=== PATIENT | male | born 1975 | race Caucasian/White ===

== ENCOUNTER 2020-07-11 13:40 | Inpatient (IN) | payer BC ==
[2020-07-11 14:38] LABS: #Basophils 0.1 thou/uL (0.0-0.2); #Eosinphils 0.2 thou/uL (0.0-0.7); #Lymphocytes 1.1 thou/uL (1.20-3.40); #Monocytes 0.5 thou/uL (0.11-0.59); #Neutrophils 3.5 thou/uL (1.40-6.50); %Basophils 1.2 % (0.0-1.0); %Eosinophils 3.7 % (0.0-10.0); %Lymphocytes 20.7 % (21.0-51.0); %Monocytes 9.7 % (0.0-10.0); %Neutrophils 64.7 % (42.0-75.0); Hemoglobin 17.6 g/dL (14.0-18.0); Mean Corpuscular HGB CONC 33.2 g/dL (32.0-36.0); Mean Corpuscular Hemoglobin 30.7 pg (27.0-31.0); Mean Corpuscular Volume 92.6 fL (78.0-98.0); Platelet Count 156 thou/uL (130-400); RBC Distribution Width 13.5 % (11.5-14.5); Red Blood Cell (RBC) Count 5.72 mill/uL (4.70-6.10); White Blood Cell (WBC) Count 5.5 thou/uL (4.8-10.8)
[2020-07-11 15:01] LABS: ALT (SGPT) 57 U/L (8-55); AST (SGOT) 44 U/L (5-34); Albumin 4.2 g/dL (3.5-5.0); Alkaline Phosphatase 82 U/L (40-110); Anion Gap 14 mmol/L (10-20); BUN (Urea Nitrogen) 19 mg/dL (8.9-20.6); Bilirubin, Total 0.7 mg/dL (0.2-1.2); Calc. Creatinine Clearance 0 mL/min (70-130); Calcium 9.3 mg/dL (7.8-10.44); Carbon Dioxide 25 mmol/L (22-29); Chloride 104 mmol/L (98-107); Estimated GFR-MDRD 43; Globulin 3.2 g/dL (2.4-3.5); Glucose 87 mg/dL (70-105); Potassium 4.2 mmol/L (3.5-5.1); Protein, Total 7.4 g/dL (6.0-8.3); Sodium 139 mmol/L (136-145)
--- NOTE | 2020-07-11 15:43 | RAD ---
2 VIEW CHEST: Date: 07/11/2020 HISTORY: Chest pain. FINDINGS: Lungs appear clear of infiltrate. Heart and mediastinum unremarkable. Osseous structures unremarkable . IMPRESSION: No acute process. POS: [facility]
[2020-07-11] MEDS ORDERED: Carvedilol 6.25 MG TAB PO SCH (15:45)
--- NOTE | 2020-07-11 17:26 | PDOC.HHP ---
Hospitalist HPI - History of Present Illness Near syncope History of Present Illness: Patient is a 44-year-old male who has been generally healthy. 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 He has a history of hypothyroidism diagnosed at a hormone clinic. He was also diagnosed with hypogonadism at one point because he was having some discomfort after a vasectomy in [place]. He is now getting his testosterone through the hormone clinic as well. He also reports some chronic kidney disease followed by Dr. Marrufo. He also reports a lifelong history of tachycardia with a baseline heart rate of over 100. The patient reports that he had Covid about 1 month ago. He had some rigors and sweats with that. He had some cough that was productive of discolored sputum and some shortness of breath. He reported that he had an abnormal chest x-ray and was given some antibiotics subsequent x-rays showed some "fluid in his left lung" and cardiomegaly. He was then sent to the ER where he was told it was fairly typical findings of Covid. He was told to follow-up with the vessel slag worker because of the cardiomegaly. He subsequently was referred by his PCP to Dr. Bains. 2 weeks ago he started moving some rocks at his new home that were fairly heavy. He had near syncopal episodes x3 when he was seeing bright flashes and feeling lightheaded. He states this is happened to him frequently over the years when he has been doing some power lifting. Over the past weekend he was working with a stump internal grinder tender for about 6 hours and then suddenly found himself to have extreme fatigue to the point that he dropped down to his knees. He says he usually does this when power lifting if he feels the same type symptoms. He did not have any chest pain associated with this. He has not had any shortness of breath associated with it. Patient was seen by Dr. Bains in his clinic and had an EKG and ech ocardiogram. Yesterday underwent a stress test. He apparently had some abnormal results including a decreased ejection fraction around 40%. He was asked to come to the hospital for admission and further work-up. ED Course: Patient was seen by Dr. Slade in the emergency room presumably at the request of Dr. Bains. He has requested the patient be started on carvedilol. This was initiated in the ER. Hospitalist ROS - Review of Systems Constitutional: denies: fever, chills Respiratory: denies: cough, shortness of breath Cardiovascular: denies: chest pain, palpitations, orthopnea Gastrointestinal: denies: nausea, vomiting, abdominal pain All other systems reviewed; all pertinent +/- noted in HPI/Subj - Medication Medications: Levothyroxine 150 mcg p.o. daily Testosterone 50 mg/mL, 1 mL IM weekly. Hospitalist History - Past Medical History Source: patient BAKER: reports: Migraine Renal/: reports: Chronic renal insuff Endocrine: reports: Other (Hypogonadism) - Past Surgical History Other Surgical History: Ankle surgery - Family History Family History: reports: Other (Alzheimer's disease.) - Social History Smoking Status: Never smoker Alcohol: reports: Rare Drugs: reports: none Living Situation: With Family - Exam General Appearance: NAD, awake alert Heart: RRR, no murmur, no gallops, no rubs, normal peripheral pulses Respiratory: CTAB, no wheezes, no rales, no ronchi, normal chest expansion, no tachypnea, normal percussion Gastrointestinal: soft, non-tender, non-distended, normal bowel sounds, no palpable masses, no hepatomegaly, no splenomegaly, no bruit Extremities: no cyanosis, no clubbing, no edema Skin: normal turgor, no lesions, no rashes Neurological: cranial nerve grossly intact, normal sensation to touch, no weakness, no focal deficits, no new deficit Musculoskeletal: normal tone, normal strength, no muscle wasting Psychiatric: normal affect, normal behavior, A&O x 3 Hospitalist Results - Labs Result Diagrams: 07/11/20 14:19 07/11/20 14:19 Lab results: WBC 5.5 thou/uL (4.8-10.8) 07/11/20 14:19 Hgb 17.6 g/dL (14.0-18.0) 07/11/20 14:19 Hct 53.0 % (42.0-52.0) H 07/11/20 14:19 MCV 92.6 fL (78.0-98.0) 07/11/20 14:19 Plt Count 156 thou/uL (130-400) 07/11/20 14:19 Neutrophils % 64.7 % (42.0-75.0) 07/11/20 14:19 Sodium 139 mmol/L (136-145) 07/11/20 14:19 Potassium 4.2 mmol/L (3.5-5.1) 07/11/20 14:19 Chloride 104 mmol/L (98-107) 07/11/20 14:19 Carbon Dioxide 25 mmol/L (22-29) 07/11/20 14:19 BUN 19 mg/dL (8.9-20.6) 07/11/20 14:19 Creatinine 1.74 mg/dL (0.7-1.3) H 07/11/20 14:19 Glucose 87 mg/dL (70-105) 07/11/20 14:19 Calcium 9.3 mg/dL (7.8-10.44) 07/11/20 14:19 Total Bilirubin 0.7 mg/dL (0.2-1.2) 07/11/20 14:19 AST 44 U/L (5-34) H 07/11/20 14:19 ALT 57 U/L (8-55) H 07/11/20 14:19 Alkaline Phosphatase 82 U/L (40-110) 07/11/20 14:19 Troponin I Less than 0.010 ng/mL (< 0.028) 07/11/20 14:19 B-Natriuretic Peptide Less than 10.0 pg/mL (0-100) 07/11/20 14:19 Serum Total Protein 7.4 g/dL (6.0-8.3) 07/11/20 14:19 Albumin 4.2 g/dL (3.5-5.0) 07/11/20 14:19 - EKG Interpretation EKG: Normal sinus rhythm at 78 bpm with no significant T wave changes. - Radiology Interpretation Chest x-ray Status: report reviewed by me (Negative) Hospitalist H&P A/P - Problem (1) Cardiomyopathy Code(s): I42.9 - CARDIOMYOPATHY, UNSPECIFIED Status: Acute (2) CKD (chronic kidney disease), stage III Code(s): N18.30 - CHRONIC KIDNEY DISEASE, STAGE 3 UNSPECIFIED Status: Acute (3) Hypothyroidism Code(s): E03.9 - HYPOTHYROIDISM, UNSPECIFIED Status: Acute (4) Hypogonadism Code(s): YMK1734 - Status: Acute (5) Elevated LFTs Code(s): R79.89 - OTHER SPECIFIED ABNORMAL FINDINGS OF BLOOD CHEMISTRY Status: Acute - Plan Plan: Cardiomyopathy: Patient has been experiencing symptoms of some near syncope and lightheadedness. He has had a work-up that has apparently revealed evidence of some ST segment depression on stress test as well as cardiomyopathy with reduced ejection fraction. He was referred from his vessel slag worker for admission and further work- up. He has been seen by the advanced heart failure vessel slag worker and Coreg has been started in the emergency department. Patient will be placed in observation. Continue on telemetry. Serial troponins. Consult cardiolog differential includes ischemia, viral cardiomyopathy, tachycardic associated cardiomyopathy. Apparently the stress test did not indicate evidence of significant ischemia. Hypothyroidism: Continue with home regimen. Check TSH. Hypogonadism: Patient can resume his outpatient treatment with testosterone injections. CKD stage III: At his stable GFR. Elevated LFTs: Appear to be mild and chronic. Recheck in the morning.
[2020-07-11 18:06] LABS: Troponin I Less than 0.010 ng/mL (< 0.028)
[2020-07-11 20:58] LABS: Troponin I Less than 0.010 ng/mL (< 0.028)
[2020-07-11] MEDS ORDERED: Acetylcysteine 10% 100 MG/ML 30 ml Vial PO SCH (21:30)
--- NOTE | 2020-07-11 22:04 | CT ---
CT THORAX NONCONTRAST: DATE: 07/11/2020 HISTORY: 44-year-old male with cough, dyspnea, and night sweats. COMPARISON: none FINDINGS: There is a large number of small patchy groundglass stellate infiltrates, both peripheral and central , scattered in the bilateral upper lobes and lower lobes, and mildly in right middle lobe. No pleural effusion, pneumothorax, thoracic aortic aneurysm, cardiomegaly, or pericardial effusion. T rachea and major bronchi are patent and clear. No mediastinal lymphadenopathy. IMPRESSION: Large number of small nodular patchy infiltrates, consistent with pneumonia by atypical organism, suc h as COVID-19 pneumonia, other viral pneumonia, and mycoplasma pneumonia.
[2020-07-11 22:30] VITALS: BMI 31.8
--- NOTE | 2020-07-11 22:32 | CON ---
DATE OF CONSULTATION: 07/11/2020 SERVICE: Advanced Heart Failure/Transplant Cardiology Consult Service. REASON FOR CONSULT: Paroxysmal occurrence of severe weakness and shortness of breath. HISTORY OF PRESENT ILLNESS: Mr. Nikita Redman, 44-year-old gentleman, who has long-standing tachycardia and episodes of flushing with sweat, presents with several episodes of severe sustained weakness. Mr. Redman has a long and somewhat complicated history. He said that he always has high fasting heart rate. His heart rate at rest is about 100 beats per minute. With exertion, he will go up to 200. He can feel his palpitations. He also has some episodes of syncope. He likes to do deadlift. When he picks up the weight deadlift, when he stands up straight at peak, that is when he would experience syncope. He has completely lost consciousness doing that several times. He would adjust the way and technique, so that does not happen anymore. However, with any exertion, his heart rate can go up to 200. At that time, the palpitation is also uncomfortable. These all occurred before the coronavirus infection. He did not feel well on June 11. He had fever, cough, and he had hot and cold spells and chills. He was tested positive for coronavirus. On June 13, he felt very shortness of breath. He felt like he has had walking pneumonia. Eventually, he was seen by the Pulmonary Clinic on June 14, was given oral steroids, antibiotics. On June 18, he felt worse. He reported that chest x-ray showed cardiomegaly. Since then, he has not been quite the same. At baseline, he can walk unlimited. So after the coronavirus infection, walking a mile becomes very, very difficult. He experienced two episodes of severe weakness. On June 29, he was raking dirt over rock to cover. The raking motion simply caused severe weakness, where he felt like passing out. This occurs three times. He felt very sweaty and short of breath at that time. But then, it went away. The second time occurred on July 06, 2020. 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 It did not involve that much exertion. He said he had sudden onset of severe weakness, fatigue, and diaphoresis. He almost collapsed. But, he did not lose consciousness. Then for next 30 minutes, he felt like he could barely move. It takes him a very, very long time to move equipment back to truck, these tasks had been very simple and easy. He has great difficulty performing them. Afterwards, he had to go home and sleep for 30 minutes. He feels better afterwards. These combination events caused him to be quite concerned. He was also told by his reading teacher and people in the gym that his heart rate should not be that fast. So, he sought care with sales special agent. He was seen by Dr. Jeremiah Carney. Dr. Jeremiah Rubio performed stress nuclear perfusion scan. Although he did not show any reversible ischemia, his heart was dilated and it was reported ejection fraction was only about 33%. Together with these episodes of severe weakness, he was asked to come into the ER and be admitted to be evaluated. Mr. Redman also has been having episodes of flushing. He describes turning red and sweating and with likely higher heart rate and palpitation. These events can happen episodically. This has been ongoing for several years. He can't really tell the reason why. He also has night sweats. Night sweats almost cover his sheet. This has been ongoing for extended period of time, perhaps between six months to two years, but not his entire life. Mr. Redman also does not sleep well at night. Before coronavirus, he was able to sleep flat. After coronavirus, he need to sleep at two pillows. Sometimes almost every night after he fall asleep for 2 hours, he would wake up gasping to bring in for air. He says he is getting symptoms of paroxysmal nocturnal dyspnea. However, Mr. Redman denies any edema. He also has a good appetite. Overall, he is very concerned about all of these events. He also has migraines. PAST MEDICAL HISTORY: 1. Persistent high heart rate and frequent palpitations. 2. Chronic renal insufficiency, stage IIIA. He actually has a high creatinine. 3. He said his blood pressure has been on the high side in the mid 130s and diastolic in the 90s. Thus, he has hypertension. 4. He has hypogonadism. He requires testosterone supplementation. 5. He also has hypothyroidism, requires supplement. 6. 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 7. He has frequent occurrence of basal cell carcinoma. They were removed by client solutions director. SOCIAL HISTORY: 1. He is a nonsmoker. 2. He only drinks one alcoholic drink per month. 3. He denies any illicit drug use. 4. He has been for 15 years. 5. 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 FAMILY HISTORY: 1. His father at age 77 due to Alzheimer. 2. His mother is still alive at age 73, however, she has syncope due to aortic insufficiency. 3. He has one brother who is healthy and well. 4. He denies knowing any immediate family of having sudden cardiac . REVIEW OF SYSTEMS: GENERAL: He has episodic fatigue that is sudden onset. Please see HPI. HEENT: There is no change in vision, hearing, or swallowing. PULMONARY: Please see HPI. CARDIAC: Please see HPI. GI: There is no nausea, vomiting, diarrhea. : He is urinating well. MUSCULOSKELETAL: He has no complaint of muscle or joint pains. He does circuit weight training, is quite fit. INTEGUMENT: There are no new reports of skin breakdown that are suspicious by this admission. However, he does have a history of skin cancer. Please see past medical history. NEUROLOGIC: There are no focal deficits or weaknesses. MEDICATIONS: His home medications include, 1. Testosterone supplement. 2. Synthroid. PHYSICAL EXAMINATION: VITAL SIGNS: I saw the patient in the ER. At that time, his heart rate is between 96-102, his systolic blood pressure is between 129-134, diastolic blood pressure between 82-98. GENERAL: He is alert and conversational. He is not in any acute distress. HEENT: Show EOMI. Oropharynx is benign with moist mucosa. NECK: His JVP is actually 8 cm with negative hepatojugular reflux. PULMONARY: There is good air movement bilaterally. Lungs are clear to auscultation bilaterally. CARDIAC: Tachycardic. Normal S1, S2, there is perhaps a slight 1/6 holosystolic murmur at the apex. His PMI seems to be little bit inferiorly and laterally displaced. ABDOMEN: Soft, nontender. Positive bowel sounds. EXTREMITIES: His lower extremities without edema, it is warm and well perfused. Positive dorsalis pedis pulses bilaterally. IMAGING: His chest x-ray was done and reviewed. It show slightly enlarged heart. There are prominent vascular patterns. LABORATORY VALUES: Include sodium 139, potassium 4.2, bicarbonate 25, BUN 19, creatinine 1.74, total bilirubin 0.7, AST slightly elevated at 44, ALT slightly elevated at 57. His troponin I is less than 0.01. His albumin is 4.2. His CBC shows white cell count 5.5, hemoglobin is elevated at 17.6, his hematocrit elevated at 53. His platelet count 156. His BNP value is less than 10. ASSESSMENT: 44-year-old gentleman has syndrome of sudden onset of severe fatigue, weakness, and shortness of breath. He also has naturally high resting heart rate above 100. He has frequent occurrence of flushing. This is an enigmatic symptom that needs careful exploration. Coronary artery disease can cause sudden onset of severe fatigue and shortness of breath that resolved with rest. Thus, a cath is needed to look for significant coronary artery disease. He may have underlying cardiomyopathy. That would explain his tachycardia and possibly enlarged heart and low ejection fraction. He may have underlying endocrine neoplasm. A serotonin secreting neoplasm will cause continued high heart rate and flushing, which will be consistent with his presentation, so this will also need to be explored. Please see the following for my recommendations. RECOMMENDATIONS: 1. Please perform a good careful echocardiogram to look for cardiomyopathy. 2. Depending on the echocardiogram findings, we will likely need to do a coronary angiogram to check for his significant coronary artery stenosis. 3. We will need to do a noncontrast CT of the chest to look for pulmonary nodules or for potential pulmonary carcinoid tumor. 4. We will need to collect 24-hour urine for metanephrines, 5-HIAA, and also vanillylmandelic acid. 5. Please provide carvedilol at 6.25 mg p.o. q.12 hours, first dose now. That will help to control his heart rate and start treating his probable cardiomyopathy. 6. It would be ideal to start Entresto. However, since that he may need a coronary angiogram with creatinine 1.74, we will hold off on this for now. Please start Ivabradine at 2.5 mg p.o. b.i.d. due to his surprisingly high heart rate. 7. Since that he may undergo coronary angiogram, he will need to be n.p.o. past midnight. 8. Please provide careful IV hydration of half normal saline at about 70 mL/h, starting at 6 o'clock in the morning and then continue until 6 hours post catheterization, but no more than 1 L. 9. Complete overall health evaluation to include TSH to make sure that he is not getting too much thyroid supplementation, lipid panel, and hemoglobin A1c. It has been a pleasure taking care of Mr. Redman. If you have any question, please give me a call. This visit took 75 minutes. This includes personally performing history and physical, counseling the patient's , coordinating care with Dr. Delaney and other medical staff, and reading chest x-ray. Job ID: [id number] MTDD
--- NOTE | 2020-07-12 00:01 | CON ---
DATE OF CONSULTATION: HISTORY OF PRESENT ILLNESS: Patient is a 44-year-old gentleman, who presents with recurrent syncope and dyspnea. The patient states that he has a long history of persistent tachycardia. He recently had several episodes where he has lost consciousness. He first noticed these primarily when he had done heavy weightlifting, but he has subsequently had recurrent episodes. The patient did have recently COVID. He noticed having some lower extremity edema. Patient denies having any chest discomfort. He underwent an echocardiogram which revealed a mild decreased left ventricular systolic function. The patient underwent stress testing which he was found to have a moderate decrease in left ventricular systolic function. There was no evidence of significant ischemia. He was admitted for further cardiac evaluation. PAST MEDICAL HISTORY: 1. Chronic renal failure. 2. History of epilepsy. 3. History of basal cell carcinoma. PAST SURGICAL HISTORY: Ankle surgery, and vasectomy. SOCIAL HISTORY: Nonsmoker. ALLERGIES: NO KNOWN DRUG ALLERGIES. PHYSICAL EXAMINATION: GENERAL: A well-developed gentleman, in no acute distress. VITAL SIGNS: Blood pressure 120/100. NECK: There is no jugular distention. LUNGS: Clear to auscultation. HEART: Regular rate and rhythm with a normal S1, S2 with displaced PMI. LABORATORY: Sodium 139, potassium 4.2, chloride 104, bicarb 25, BUN 19, and creatinine 1.7. BNP is less than 10. Troponin less than 0.01. White blood cell count 5.5, hemoglobin 17.6, hematocrit 53.0, and his platelets were 156. Chest x-ray revealed normal heart size. No infiltrates. EKG revealed sinus rhythm with sinus arrhythmia. IMPRESSION: 1. Recurrent syncope. 2. Cardiomyopathy. 3. Renal insufficiency. This gentleman was found to have a decreased left ventricular systolic function. He has also had recurrent syncope. From a cardiac standpoint, there is no evidence of ischemia on his stress testing. Will proceed with CHF cardiac evaluation and EP evaluation. Further recommendations will follow. Job ID: [id number] [facility]
[2020-07-12 04:27] LABS: #Basophils 0.1 thou/uL (0.0-0.2); #Eosinphils 0.4 thou/uL (0.0-0.7); #Lymphocytes 1.7 thou/uL (1.20-3.40); #Monocytes 0.5 thou/uL (0.11-0.59); #Neutrophils 1.9 thou/uL (1.40-6.50); %Basophils 1.7 % (0.0-1.0); %Eosinophils 9.2 % (0.0-10.0); %Lymphocytes 37.3 % (21.0-51.0); %Neutrophils 40.8 % (42.0-75.0); Hemoglobin 16.5 g/dL (14.0-18.0); Mean Corpuscular HGB CONC 33.5 g/dL (32.0-36.0); Mean Corpuscular Hemoglobin 30.9 pg (27.0-31.0); Mean Corpuscular Volume 92.3 fL (78.0-98.0); Mean Platelet Volume 8.6 fL (7.4-10.4); Platelet Count 160 thou/uL (130-400); RBC Distribution Width 13.4 % (11.5-14.5); Red Blood Cell (RBC) Count 5.33 mill/uL (4.70-6.10); White Blood Cell (WBC) Count 4.5 thou/uL (4.8-10.8)
[2020-07-12 04:37] LABS: Hemoglobin A1c 5.5 % (4.0-6.0)
[2020-07-12 04:51] LABS: Anion Gap 13 mmol/L (10-20); BUN (Urea Nitrogen) 22 mg/dL (8.9-20.6); Calc. Creatinine Clearance 61 mL/min (70-130); Calcium 8.9 mg/dL (7.8-10.44); Carbon Dioxide 28 mmol/L (22-29); Cardiac Risk 4.5 (Less than 4.5); Chloride 103 mmol/L (98-107); Cholesterol 249 mg/dl (< 200 Desired); Estimated GFR-MDRD 37; Glucose 86 mg/dL (70-105); HDL Cholesterol 55 mg/dL (>60 Neg Risk); Iron 60 ug/dL (65-175); Iron Binding Capacity, Total 315 mcg/dL (261-462); LDL Cholesterol, Calculated 172 mg/dL; Magnesium 2.2 mg/dL (1.6-2.6); Potassium 4.1 mmol/L (3.5-5.1); Sodium 140 mmol/L (136-145); Triglycerides 112 mg/dL (Less than 150)
[2020-07-12 04:56] LABS: Iron 60 ug/dL (65-175); Iron Binding Capacity, Total 313 mcg/dL (261-462)
[2020-07-12 05:10] LABS: Thyroid Stimulating Hormone 1.3995 uIU/mL (0.35-4.94)
[2020-07-12] MEDS: Sodium Chloride 0.45% 1,000 ML IV SCH ×3 (05:33→18:47)
[2020-07-12] MEDS: Acetylcysteine 10% 100 MG/ML 30 ml Vial PO SCH (11:27)
[2020-07-12] MEDS ORDERED: Midazolam HCl 2 mg/2 ml Vial ONE (12:23)
[2020-07-12] MEDS ORDERED: Fentanyl 100 MCG/2 ML VIAL ONE (12:23)
[2020-07-12] MEDS ORDERED: Acetaminophen/Codeine 30-300mg Tablet PO PRN ×2 (12:54)
[2020-07-12] MEDS ORDERED: Nitroglycerin 0.4 MG TAB (25 Tab Bottle) SL PRN (12:54)
[2020-07-12] MEDS ORDERED: Sodium Chloride 0.9% 200 ML IV PRN (12:54)
[2020-07-12] MEDS ORDERED: Ondansetron PF 4 MG/2 ML Vial ONE (12:55)
[2020-07-12] MEDS ORDERED: Atropine Sulfate 1 mg/10 ml Syringe ONE (12:56)
[2020-07-12] MEDS ORDERED: Atropine Sulfate 1 mg/1 ml Vial ONE (12:56)
--- NOTE | 2020-07-12 13:56 | PRG ---
DATE OF SERVICE: 07/12/2020 SUBJECTIVE: Mr. Redman had a variable evening. When he went to the floor, his heart rate was 120 to 138. Consequently, ivabradine was needed to be started. Apparently, he slept through the night without any problems. However, at telemetry, he has bradycardia with sinus pauses that were 2.5 seconds in duration. Later on this morning, even when awake, he did have some bradycardia with sinus pauses greater than about 2 seconds. He is anxious this morning. Would like to know what to do next. REVIEW OF SYSTEMS: GENERAL: There is no fever, chills, or productive cough. He does have episodes of feeling lightheaded. HEENT: There is no change in vision, hearing, or swallowing. PULMONARY: There is no shortness of breath. CARDIAC: He does have palpitations but no chest pains. GI: There is no nausea, vomiting, diarrhea. : He is able to urinate on his own. MUSCULOSKELETAL: He does not complain of joint or muscle pains. INTEGUMENT: There is no skin breakdown. NEUROLOGIC: There are no focal deficits or weaknesses. MEDICATIONS: He is currently on 1. Carvedilol 6.25 mg twice a day. 2. Ivabradine 2.5 mg q.12 hours. 3. He has been receiving acetylcysteine 600 mg orally twice per day, two doses before catheterization and two doses after catheterization. 4. He is currently on half-normal saline at 75 mL/hour. PHYSICAL EXAMINATION: TELEMETRY: Reviewed. He has sinus tachycardia at times and he also has sinus pauses, the longest overnight is 2.5 seconds and longest during wake time is about 2 seconds. VITAL SIGNS: Blood pressure is 120/87, heart rate at time is 84. GENERAL: He is alert and conversational, sitting comfortably in bed. HEENT: EOMI. Oropharynx is benign with moist mucosa. NECK: JVP is about 8 cm with negative hepatojugular reflux. PULMONARY: Clear to auscultation. There is good air movement bilaterally. CARDIAC: Regular rate and rhythm with normal S1, S2. There is 1/6 holosystolic murmur at the apex. There is also 2/6 holosystolic murmur at the left sternal border. ABDOMEN: Soft, nontender. Positive bowel sounds. EXTREMITIES: Lower extremities without edema. Pulses, positive dorsalis pedis pulses bilaterally. LABORATORY DATA: This morning, his white cell count is 4.5, hemoglobin 16.5 and hematocrit is at 49. His chemistry values show sodium 140, potassium 4.1, BUN 22, creatinine 1.99. His low iron saturation is 19%. His ferritin is in the normal range of 264. His LDL cholesterol is elevated to 172. His HDL cholesterol is at 55. His echocardiogram was completed and reviewed. 1. He has mildly dilated left ventricle with LVIDd of 5.7 cm. 2. LVEF is 30% with smoke in the ventricle suggesting very slow flow due to hypocontractility. 3. Moderately dilated right ventricle with mildly reduced right ventricular function. 4. This is consistent with a cardiomyopathy. ASSESSMENT: 44-year-old gentleman has cardiomyopathy. He has combined systolic and diastolic dysfunction with dilated LV. He also has right ventricular dilation and reduced right ventricular function. He has pauses. At this point, he will need a coronary angiogram to rule out coronary artery disease as cause of this. With his history of syncope, biventricular dysfunction, he will likely need a dual- chamber AICD because he already has syncope and also pauses. A LifeVest would not be useful because the LifeVest cannot pace. There is some possibility of coronary artery disease because LDL is so high. He also has flushing and tachycardia episodes that needs to be investigated. His 24 hour collection for possible serotonin neoplasm needs to be completed. In the meantime, we will give him gentle hydration and Mucomyst to protect his kidneys. RECOMMENDATION: 1. Proceed down to coronary angiogram with biplane and low dye volume as much as possible. 2. Discontinue ivabradine for now because he probably has significant bradycardia problem. 3. Please add aspirin 81 mg daily. 4. Please add atorvastatin 80 mg p.o. at bedtime. 5. When he returns, we will need to continue with gentle IV hydration for least 6 hours. 6. We will hold off on Entresto for now, give him 3 days for his kidneys to recover. 7. We will need to consult EP Cardiology for consideration of dual-chamber AICD. It has been a pleasure taking care of Mr. Redman. If any questions, please give me a call. The visitation time is about 45 minutes. This includes personally performing history and physical, reading echocardiogram and coronary care among multiple members and patient counseling and explanation. Job ID: [id number] MTDD
[2020-07-12] MEDS ORDERED: Iopamidol 370 76% 100 ML VIAL ONE (14:24)
--- NOTE | 2020-07-12 14:54 | CON ---
DATE OF CONSULTATION: 07/12/2020 REASON FOR CONSULTATION: Evaluate results of SARS-CoV-2 tests in relationship to possible persistence of infection. HISTORY OF PRESENT ILLNESS: A 44-year-old, who has a history of CKD stage 3, followed by Dr. Marrufo. The patient could not tell me what the etiology of this diagnosis is. He also has a history of hypogonadism and hypothyroidism and was diagnosed with COVID at the beginning of May. He remained at home throughout the course of his illness and had quite a bit of symptoms and his oximetries went all the way down to the higher 80s at the beginning of the COVID-19. He slowly got better, and sometime at the end of May, went back to work. 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 Bains and he was recommended evaluation included an EKG and echocardiogram. The echo showed decreased ejection fraction around 40% and he was just admitted and had a coronary angiogram, which was normal. Currently, Mr. Redman is not coughing much. A little bit of dyspnea sometimes, but he does not have orthopnea. No headaches. No sore throat, odynophagia, or dysphagia. No dental pain. No back pain. No chest pain. No abdominal pain or diarrhea. Voiding without difficulty. He had some nocturia for a while, but that has improved. MEDICAL HISTORY: Migraine headaches, hypothyroidism, hypogonadism, and CKD stage 3. FAMILY HISTORY: Noncontributory. SOCIAL HISTORY: . He works at [employer] in [employer]. Never smoker. Drinks rarely. CURRENT MEDICATIONS: 1. Acetaminophen. 2. Coreg. 3. Corlanor. PHYSICAL EXAMINATION: VITAL SIGNS: T-max 97.9, blood pressure 120/87, heart rate 84, respiratory rate 16, O2 saturation 95 on room air. SKIN: Has a peripheral IV access. He is voiding in the toilet. No lymphadenopathy. HEENT: Ocular movements conjugate. Sclerae are white. Pupils are reactive and equal. Oral cavity normal. NECK: Supple. LUNGS: Symmetric, clear breath sounds. HEART: S1 and S2, regular rate. No S3 or S4. ABDOMEN: Soft. Not distended or tender. No ascites. No bladder distention. EXTREMITIES: No joint inflammatory activity. No edema. Pulses 1+ in dorsalis pedis. LABORATORY DATA: White cell count 4.5, hemoglobin 16, platelets 160, 40% neutrophils, total lymphocyte count 1.7. Sodium 140; creatinine 1.99; GFR 37, this is about his baseline; uric acid 6.1; glucose 86. Iron 60, ferritin 264. AST 44, ALT 57. BNP less than 10. Albumin 4.2, globulin 3.2. Thyroid tests were normal. His initial SARS-CoV-2 PCR positivity was in the first week of May, so this is a month and a half after his original infection was detected and 4 weeks after resolution of his illness. ASSESSMENT: Chronic kidney disease of unclear etiology, stage 3; hypogonadism; hypothyroidism; and recent episode of SARS-CoV-2 infection, which was managed in the home setting, at least moderate in severity, with O2 saturations as low as 87 as reported by the patient's , but never admitted. The only treatment he received was azithromycin and anti-cough medicines. Now, he presents with cardiomegaly and moderately decreased ejection fraction. He had a clear angiogram and now positive SARS-CoV PCR repeated on July 09. DISCUSSION: About 20% to 30% of patients will have intermittently positive SARS-CoV-2 PCR after resolution of the initial illness and an almost totality of those patients do not have viable virus detectable, therefore I would not consider him infectious. Small minorities still have some virus, but usually those reflect reinfection or recrudescence due to immunosuppression. So, I believe that we can manage this patient without the usual airborne precautions/isolation precautions, and I consider this repeat test positivity as not relevant for his management at this point in time. SARS-CoV-2 is known to be associated with the cardiomyopathy in certain patients, although the incidence of direct involvement by the virus is actually quite low according to various autopsy studies. Job ID: [id number] [facility]
[2020-07-12 15:15] LABS: SARS-CoV-2 IgG Ab Reactive (NonReactive); SARS-CoV-2 IgG Index 7.54 S/CO (< 1.40)
[2020-07-12] MEDS: Ivabradine 5 MG TAB PO SCH ×2 (15:50→22:11)
[2020-07-12] MEDS: Carvedilol 6.25 MG TAB PO SCH ×2 (15:50→21:46)
[2020-07-12] MEDS ORDERED: Aspirin Chewable 81 MG TAB PO SCH (17:45)
--- NOTE | 2020-07-12 19:01 | PDOC.HOSPP ---
- Subjective Encounter Date: 07/12/20 Encounter Time: 10:55 Subjective: Patient up in bed denies any complaints - Objective Vital Signs & Weight: Vital Signs (12 hours) Temp Pulse Resp BP Pulse Ox 07/12/20 16:00 97.6 F 92 17 125/59 L 95 07/12/20 13:45 97.2 F L 88 14 116/71 98 07/12/20 07:15 97.5 F L 84 16 120/87 95 Weight Weight 203 lb I&O: 07/11/20 07/12/20 07/13/20 06:59 06:59 06:59 Intake Total 1150 Output Total 950 Balance 200 Result Diagrams: 07/12/20 04:11 07/12/20 04:10 Hospitalist ROS - Review of Systems Cardiovascular: denies: chest pain, palpitations, orthopnea, paroxysmal noc. dyspnea, edema, light headedness, other Gastrointestinal: denies: nausea, vomiting, abdominal pain, diarrhea, constipation, melena, hematochezia, other Genitourinary: denies: dysuria, frequency, incontinence, hematuria, retention, other - Medication Medications: Active Medications Generic Name Dose Route Start Last Admin Trade Name Freq PRN Reason Stop Dose Admin Acetylcysteine 600 mg 07/12/20 09:00 07/12/20 11:27 Acetylcysteine 10% 100 Mg/Ml 30 Ml Vial PO 07/13/20 09:01 600 mg BID LATA Administration Aspirin 81 mg 07/12/20 17:45 07/12/20 17:48 Aspirin Chewable 81 Mg Tab PO 07/12/20 19:45 81 mg NOW LATA Administration Carvedilol 6.25 mg 07/12/20 09:00 07/12/20 15:50 Carvedilol 6.25 Mg Tab PO 6.25 mg Q12HR LATA Administration Sodium Chloride 1,000 mls @ 75 mls/hr 07/12/20 18:30 07/12/20 18:47 1/2 Normal Saline IV Not Given .[id number] LATA Ivabradine 2.5 mg 07/12/20 09:00 07/12/20 15:50 Ivabradine 5 Mg Tab PO 2.5 mg Q12HR LATA Administration - Exam Neck: negative: supple, symmetric, no JVD, no thyromegaly, no lymphadenopathy, no carotid bruit, JVD Heart: negative: RRR, no murmur, no gallops, no rubs, normal peripheral pulses, irregular, diminshed peripheral pulses, murmur present, II/IV, III/IV Respiratory: negative: CTAB, no wheezes, no rales, no ronchi, normal chest expansion, no tachypnea, normal percussion, rales, rhonchi, tachypneic, wheezes Gastrointestinal: negative: soft, non-tender, non-distended, normal bowel sounds, no palpable masses, no hepatomegaly, no splenomegaly, no bruit, no guarding, no rigidity, tender to palpation, distended, diminished bowl sounds, voluntary guarding Hosp A/P (1) CKD (chronic kidney disease), stage III Code(s): N18.30 - CHRONIC KIDNEY DISEASE, STAGE 3 UNSPECIFIED Status: Acute (2) Cardiomyopathy Code(s): I42.9 - CARDIOMYOPATHY, UNSPECIFIED Status: Acute (3) Elevated LFTs Code(s): R79.89 - OTHER SPECIFIED ABNORMAL FINDINGS OF BLOOD CHEMISTRY Status: Acute (4) Hypogonadism Code(s): YSL8095 - Status: Acute (5) Hypothyroidism Code(s): E03.9 - HYPOTHYROIDISM, UNSPECIFIED Status: Acute (6) Systolic heart failure Code(s): I50.20 - UNSPECIFIED SYSTOLIC (CONGESTIVE) HEART FAILURE Status: Acute (7) Sinus pause Code(s): I45.5 - OTHER SPECIFIED HEART BLOCK Status: Acute - Plan Patient had a 2.5-second pause. Cardiac cath done no acute coronary disease. EF of 30%. Patient started on Coreg. We will continue aspirin and statin. Most likely will require a ICD. Patient had Covid in May antibodies positive. Patient also undergoing a 24-hour urine collection for pheochromocytoma.
[2020-07-12] MEDS: Atorvastatin Calcium 40 MG TAB PO SCH (21:46)
[2020-07-12] MEDS: Heparin 5,000 UNITS/ML VIAL SC SCH (21:48)
--- NOTE | 2020-07-12 21:50 | CON ---
DATE OF CONSULTATION: REQUESTING PHYSICIAN: given the history of chronic kidney disease, followed by me at the chronic kidney disease clinic. IMPRESSION: 1. Chronic kidney disease stage 3 with a baseline creatinine of about 1.5 to 1.7. 2. Cardiomyopathy, query cause, maybe related to recent COVID infection, but cannot completely rule out ischemic cardiomyopathy. 3. Dyslipidemia. PLAN: 1. Given the chronic kidney disease state of this patient, we will recommend lowest possible amount of diet for diagnostic purposes. 2. Gentle hydration pre and post contrast exposure. 3. Hold off on TREVIN inhibitor usage for now. 4. Renally dose all other medications and avoid potentially nephrotoxic agents. HISTORY OF PRESENT ILLNESS: History is that of a 44-year-old gentleman, known to me at the chronic kidney disease screening with a baseline chronic kidney disease stage 3. The patient has maintained stable kidney condition at the level of stage 3, recently diagnosed with COVID infection, managed as an outpatient, presented here because of recurrent syncopal episode and echocardiogram reviewed, reduced ejection fraction. As a result of this, patient is now being admitted for further diagnostic/possible intervention. PAST MEDICAL HISTORY: As documented above. In addition, patient does have history of hypogonadism, hypertension, dyslipidemia. MEDICATIONS: Reviewed as documented on [facility]. ALLERGIES: NO KNOWN DRUG ALLERGIES. FAMILY HISTORY: Not significantly related to present illness. SOCIAL HISTORY: The patient is . Denies alcohol, tobacco, or illicit drug use. REVIEW OF SYSTEMS: As documented in the body of the history. All other systems were reviewed and found not to be significantly related to present illness. PHYSICAL EXAMINATION: VITAL SIGNS: On examination, the patient noted with the following vital signs; afebrile with temperature 97.5, pulse 84, respiratory rate of 16, O2 saturation of 98% with a blood pressure 116/71. HEENT EXAMINATION: Unremarkable. CARDIOVASCULAR SYSTEM: First and second heart sounds were heard. RESPIRATORY SYSTEM: Clear to auscultation. DIGESTIVE SYSTEM: Revealed a benign abdomen. EXTREMITIES: No peripheral edema. SKIN EXAMINATION: No new gross rash. LYMPHATICS: No peripheral lymphadenopathy. In summary, this 44-year-old gentleman with chronic kidney disease stage 3, who presented here status post COVID infection and noted with cardiomyopathy. Thank you for this consultation. We will follow with you. Job ID: [id number]
[2020-07-13] MEDS: Acetylcysteine 10% 100 MG/ML 30 ml Vial PO SCH ×3 (00:46→11:42)
[2020-07-13] MEDS ORDERED: Acetylcysteine 10% 100 MG/ML 30 ml Vial INH SCH (01:00)
[2020-07-13 04:40] LABS: #Basophils 0.1 thou/uL (0.0-0.2); #Eosinphils 0.4 thou/uL (0.0-0.7); #Lymphocytes 1.8 thou/uL (1.20-3.40); #Monocytes 0.7 thou/uL (0.11-0.59); #Neutrophils 2.8 thou/uL (1.40-6.50); %Basophils 1.7 % (0.0-1.0); %Eosinophils 7.6 % (0.0-10.0); %Lymphocytes 30.9 % (21.0-51.0); %Monocytes 12.6 % (0.0-10.0); %Neutrophils 47.3 % (42.0-75.0); Hemoglobin 16.4 g/dL (14.0-18.0); Mean Corpuscular HGB CONC 34.2 g/dL (32.0-36.0); Mean Corpuscular Volume 93.4 fL (78.0-98.0); Mean Platelet Volume 8.6 fL (7.4-10.4); Platelet Count 153 thou/uL (130-400); RBC Distribution Width 13.4 % (11.5-14.5); Red Blood Cell (RBC) Count 5.14 mill/uL (4.70-6.10); White Blood Cell (WBC) Count 5.9 thou/uL (4.8-10.8)
[2020-07-13 05:02] LABS: Anion Gap 11 mmol/L (10-20); BUN (Urea Nitrogen) 16 mg/dL (8.9-20.6); Calc. Creatinine Clearance 62 mL/min (70-130); Calcium 9.1 mg/dL (7.8-10.44); Carbon Dioxide 28 mmol/L (22-29); Chloride 104 mmol/L (98-107); Estimated GFR-MDRD 37; Glucose 86 mg/dL (70-105); Magnesium 2.1 mg/dL (1.6-2.6); Potassium 4.3 mmol/L (3.5-5.1); Sodium 139 mmol/L (136-145)
--- NOTE | 2020-07-13 08:57 | CON ---
DATE OF CONSULTATION: 07/12/2020 ADDITIONAL REFERRING PHYSICIAN: Nevin Roberts MD HISTORY OF PRESENT ILLNESS: I am seeing Mr. Redman at our [facility] as an Electrophysiology applications sales consultant in the telemetry floor. His problems are; 1. Newly found systolic congestive heart failure with nonischemic cardiomyopathy. a. Severe reduced LVEF on 2D echo from 07/12/2020 at 30% and moderate RV dilation. b. Left heart catheterization today shows normal coronary arteries. 2. Recurrent syncopal and near syncopal spells. 3. Renal insufficiency. 4. Recent COVID-19 pneumonia infection. ALLERGIES: NONE NOTED. MEDICATIONS: At home included; 1. Thyroid [place]. 2. Testosterone. SUBJECTIVE: Mr. Redman is here in the hospital as admitted by Dr. Bains. He had no prior cardiac history. He did notice some persistent rapid heart beats in last couple of months. He had suffered a COVID infection about a month prior to admission. He had some rigors, night sweats, productive cough, and dyspnea. His x-ray did reveal cardiomegaly at that time and some pleural effusions. He was referred to Dr. Bains hence the cardiomegaly. 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 His energy levels were slow to recover, not like other times. Dr. Bains's evaluated him and LVEF of 40% was noted. He was admitted for further workup by him. He denies chest pains. He has some PND and orthopnea at night, now improved. At this point, he has no fever, chills, or cough. No stroke-like symptoms. No neurological deficits. No bleeding issues or stroke-like symptoms. REVIEW OF SYSTEMS: Rest of 12-point review of system otherwise unremarkable. PAST MEDICAL HISTORY: As above. He does report migraine headaches. He does have a history of renal insufficiency and also had hypogonadism on testosterone replacement and hypothyroidism on replacement. SOCIAL HISTORY: The patient is a smoker. Denies EtOH or drug abuse. FAMILY HISTORY: Significant for Alzheimer disease. OBJECTIVE DATA: VITAL SIGNS: Blood pressure currently 129/59, heart rate is 92, respirations 17, and temperature 97.6 degrees Fahrenheit. GENERAL: Alert and oriented man, in no apparent distress. NECK: Supple. Jugular veins not distended. CHEST: Coarse with crackles. HEART: Sounds are regular to rate and rhythm. No murmur or gallop appreciated. PMI is nonpalpable. ABDOMEN: Benign. Bowel sounds positive. EXTREMITIES: Lower extremities without clubbing or cyanosis. NEUROLOGIC: The patient is nonfocal. MUSCULOSKELETAL: Without joint swelling or deformity. SKIN: Without rash. DATABASE: EKG reviewed revealing sinus rhythm, narrow QRS at 150 milliseconds,\ no ST/T changes. LABORATORY DATA: White cell count 4.5, hemoglobin is 16.5, and platelet count is 160. Sodium 140, potassium 4.5, BUN is 22, and creatinine 1.99. SARS-COVID serology reveals reactive IgG antibodies on 07/09 and negative SARS PCR test. Telemetry revealed episodic nighttime bradycardia, Consider sleep apnea pattern up to 2.2 second pauses. Chest x-ray on 07/11/2020 shows no acute process. ASSESSMENT AND PLAN: Mr. Redman is a 44-year-old man with history of newly found CHF and nonischemic cardiomyopathy, severe reduced LVEF, who also has near syncopal and syncopal spells in the past. This seemed to be mostly related to exertion like lifting weights and likely correspond to hemodynamic etiology. On the other hand, in view of his newly found LV dysfunction, ventricular arrhythmia as a cause cannot be completely ruled out. We discussed these findings as there is a concern for future ventricular arrhythmias.He has not been on any heart failure management. For now, I would consider bringing up his heart failure regimen. Beta-blockers should would be reasonable to initiate even in face of the nighttime pauses, which are likely those sleep apnea related. So far, no ventricular tachyarrhythmias seen on psychiatry teacher. Nevertheless, he would benefit from LifeVest therapy for next three months. Should he stay without future ventricular arrhythmias then a repeat echocardiogram could be considered in three months to evaluate candidacy for prophylactic ICD therapy long-term. On the other hand, if further ventricular arrhythmia episodes seen or syncope episodes continue despite of exercise moderation, EP study and possibly defibrillator implant could be considered. We would like to see him back after three months. Follow up echocardiogram in the office. We discussed these issues with Dr. Bains and Dr. Bryan Slade, the heart failure specialist. Job ID: [id number] MTDD
[2020-07-13] MEDS: Sodium Chloride 0.45% 1,000 ML IV SCH ×2 (09:08→23:05)
[2020-07-13] MEDS: Ivabradine 5 MG TAB PO SCH (09:09)
[2020-07-13] MEDS: Heparin 5,000 UNITS/ML VIAL SC SCH ×2 (09:09→21:34)
[2020-07-13] MEDS: Aspirin Chewable 81 MG TAB PO SCH (09:09)
[2020-07-13] MEDS: Carvedilol 6.25 MG TAB PO SCH ×2 (09:09→21:32)
[2020-07-13] MEDS ORDERED: Carvedilol 6.25 MG TAB PO SCH (11:30)
[2020-07-13] MEDS ORDERED: Sodium Chloride 0.45% 500 ML IV SCH (11:30)
[2020-07-13] MEDS ORDERED: Acetylcysteine 10% 100 MG/ML 30 ml Vial PO SCH ×2 (11:30→21:00)
--- NOTE | 2020-07-13 12:21 | PRG ---
DATE OF SERVICE: 07/13/2020 SUBJECTIVE: Mr. Redman had an excellent day. He was not short of breath, no chest pains. He was generally asymptomatic. He underwent coronary angiogram yesterday afternoon. The coronary angiogram did not show any significant stenosis. He returned without difficulty. This morning, he is eating well and feeling well, wants to go home. During the day, his resting heart rate can go up to 120s to 130s. He is generally asymptomatic with that. REVIEW OF SYSTEMS: GENERAL: No fever, chills, or productive cough. HEENT: No change in vision, hearing, or swallowing. PULMONARY: No shortness of breath or productive cough. CARDIAC: No chest pain or syncope. GI: No nausea, vomiting, or diarrhea. : He is able to urinate on his own. He said his urine is still dark, not quite clear. MUSCULOSKELETAL: No complaints of muscular joint pains. INTEGUMENT: No complaints of skin breakdown. NEUROLOGIC: No focal deficits or weaknesses. CURRENT MEDICATIONS: 1. Aspirin 81 mg daily. 2. Carvedilol 6.25 mg q.12 hours. 3. Heparin 5000 units subcutaneous twice a day. 4. Ivabradine at 2.5 mg q.12 hours and 0.5 normal saline running at 70 mL/hour. His telemetry has been reviewed. At times, he has sinus tachycardia. Overnight during his sleep hours, he does have episodes of sinus bradycardia sometimes sinus pause at 1.7 seconds, but not anything longer. These do not occur during the waking hours. PHYSICAL EXAMINATION: VITAL SIGNS: His latest vital signs are heart rate 80, blood pressure 130/77. GENERAL: He is alert, conversational, sitting comfortably in bed, relaxed. HEENT: EOMI. Oropharynx is benign with moist mucosa. NECK: His neck JVP is about 9 cm. LUNGS: Clear to auscultation bilaterally. Good air movement bilaterally. CARDIAC: Right now is regular rate and rhythm with normal S1, S2. There is 2/6 holosystolic murmur near the apex. ABDOMEN: Soft, nontender. Positive bowel sounds. EXTREMITIES: His right femoral access site was examined. There is no bleeding. There is no hematoma. There is no bruit. His femoral arterial access site is intact. EXTREMITIES: Lower extremities without edema. There are palpable dorsalis pedis pulses bilaterally. LABORATORY VALUES: White blood cell count 5.9, hemoglobin 16.4, platelets are 153. His chemistry shows sodium 139, potassium 4.3, BUN 16, creatinine 1.96, essentially unchanged from yesterday. As noted, his LVEF is 30%. This is both by visual and also computer calculation at the apical 4-chamber view. ASSESSMENT: 44-year-old gentleman has nonischemic cardiomyopathy causing heart failure with reduced ejection fraction. He has combined systolic and diastolic dysfunction. He also has mild right ventricular dilation and dysfunction. Thus, he has cardiomyopathy. Currently, he is well compensated; however, he needs to get on as much as possible heart failure medical treatment. Due to the creatinine close to being 2 and has been chronic, it will be difficult not to use TREVIN inhibitors or Entresto. It would be too difficult to start in this case. So, we will titrate up carvedilol and use combination of isosorbide dinitrate and hydralazine. RECOMMENDATIONS: Please see the following for detailed recommendations. 1. Please give carvedilol 6.25 mg one dose now. 2. Increase carvedilol to 12.5 mg p.o. q.12 hours. 3. Add hydralazine 10 mg p.o. q.8 hours. 4. Please continue with 0.5 normal saline IV fluids 75 mL/hour for a total of 500 mL and after that stop. 5. Please help with arranging for LifeVest for the patient. 6. I will likely to start low dose isosorbide dinitrate tomorrow to treat his heart failure. It has been a pleasure taking care of Mr. Redman. If you have any questions, please give me a call. The visitation time for this is 35 minutes. Job ID: [id number] MTDD
[2020-07-13] MEDS: hydrALAZINE 10 MG TAB PO SCH ×2 (14:19→21:35)
--- NOTE | 2020-07-13 17:29 | EKG ---
Test Reason : STRESS TEST Blood Pressure : / mmHG Vent. Rate : 078 BPM Atrial Rate : 078 BPM P-R Int : 158 ms QRS Dur : 100 ms QT Int : 330 ms P-R-T Axes : 047 001 032 degrees QTc Int : 376 ms Normal sinus rhythm with sinus arrhythmia Normal ECG Confirmed by PATRICE OSBORN M.D. ([id number]), managing editor GEETA BERMUDEZ ([id number] on 07/13/2020 5:29:40 PM Referred By: ANAND Confirmed By:PATRICE OSBORN M.D.
--- NOTE | 2020-07-13 20:07 | PDOC.HOSPP ---
- Subjective Encounter Date: 07/13/20 Encounter Time: 15:00 Subjective: She was seen and examined in bed. He denies any chest pain or shortness of breath. No significant events overnight. Currently awaiting LifeVest prior to discharge - Objective Vital Signs & Weight: Vital Signs (12 hours) Temp Pulse Pulse Pulse Resp BP BP 07/13/20 16:34 98.2 F 86 19 07/13/20 14:19 113 H 140/86 07/13/20 13:07 90 113 H 131/76 07/13/20 12:54 113 H 19 140/86 07/13/20 11:57 124/68 07/13/20 11:53 101 H 20 07/13/20 09:09 115/71 BP BP BP Pulse Ox Pulse Ox Pulse Ox 07/13/20 16:34 115/67 86 L 07/13/20 14:19 07/13/20 13:07 140/86 94 L 98 07/13/20 12:54 07/13/20 11:57 07/13/20 11:53 128/79 98 07/13/20 09:09 Weight Weight 208 lb 14.4 oz I&O: 07/12/20 07/13/20 07/14/20 06:59 06:59 06:59 Intake Total 1150 1238 Output Total 950 700 Balance 200 538 Result Diagrams: 07/13/20 04:01 07/13/20 04:01 Hospitalist ROS - Medication Medications: Active Medications Generic Name Dose Route Start Last Admin Trade Name Freq PRN Reason Stop Dose Admin Aspirin 81 mg 07/13/20 09:00 07/13/20 09:09 Aspirin Chewable 81 Mg Tab PO 81 mg DAILY LATA Administration Atorvastatin Calcium 80 mg 07/12/20 21:00 07/12/20 21:46 Atorvastatin Calcium 40 Mg Tab PO 80 mg HS LATA Administration Heparin Sodium (Porcine) 5,000 units 07/12/20 21:00 07/13/20 09:09 Heparin 5,000 Units/Ml Vial SC 5,000 units BID LATA Administration Hydralazine HCl 10 mg 07/13/20 14:00 07/13/20 14:19 Hydralazine 10 Mg Tab PO 10 mg Q8HR LATA Administration Sodium Chloride 1,000 mls @ 75 mls/hr 07/12/20 18:30 07/13/20 09:08 1/2 Normal Saline IV 1,000 mls .[id number] LATA Administration - Exam General Appearance: awake alert Eye: PERRL, anicteric sclera Neck: no JVD, no lymphadenopathy Heart: RRR, no murmur, no gallops, no rubs, normal peripheral pulses Respiratory: no wheezes, no rales, no ronchi, no tachypnea Gastrointestinal: soft, non-tender, non-distended, normal bowel sounds, no palpable masses Extremities: no cyanosis, no clubbing, no edema Hosp A/P - Plan 44-year-old male patient with recent Covid diagnosis currently being managed for severely reduced EF with heart failure. He was followed by heart failure and if his team and is due for possible discharge pending LifeVest. Heart failure with reduced ejection fraction. Currently stable We will continue on carvedilol increased from 6.25 from 12.5 every 12. Also on hydralazine and isosorbide dinitrate. Heart failure team following. Also followed by a 15. CKD Stage III Etiology unclear Nephrology followed however no active interventions at the moment. Hypogonadism Continue on testosterone Follow-up with his insurance auditor. Hypothyroidism Continue levothyroxine Arrhythmias Sinus pauses noted to the night. No ventricular arrhythmias so far Follow-up with electrophysiology
[2020-07-13] MEDS: Atorvastatin Calcium 40 MG TAB PO SCH (21:32)
[2020-07-14 04:11] LABS: #Basophils 0.1 thou/uL (0.0-0.2); #Eosinphils 0.5 thou/uL (0.0-0.7); #Lymphocytes 2.1 thou/uL (1.20-3.40); #Monocytes 0.8 thou/uL (0.11-0.59); %Basophils 1.3 % (0.0-1.0); %Eosinophils 8.7 % (0.0-10.0); %Lymphocytes 38.1 % (21.0-51.0); %Monocytes 14.5 % (0.0-10.0); %Neutrophils 37.4 % (42.0-75.0); Hemoglobin 16.2 g/dL (14.0-18.0); Mean Corpuscular HGB CONC 33.6 g/dL (32.0-36.0); Mean Corpuscular Hemoglobin 30.8 pg (27.0-31.0); Mean Corpuscular Volume 91.8 fL (78.0-98.0); Mean Platelet Volume 8.9 fL (7.4-10.4); Platelet Count 158 thou/uL (130-400); RBC Distribution Width 13.5 % (11.5-14.5); Red Blood Cell (RBC) Count 5.24 mill/uL (4.70-6.10); White Blood Cell (WBC) Count 5.5 thou/uL (4.8-10.8)
[2020-07-14 04:29] LABS: Anion Gap 12 mmol/L (10-20); BUN (Urea Nitrogen) 18 mg/dL (8.9-20.6); Calc. Creatinine Clearance 63 mL/min (70-130); Calcium 9.1 mg/dL (7.8-10.44); Carbon Dioxide 29 mmol/L (22-29); Chloride 102 mmol/L (98-107); Estimated GFR-MDRD 36; Glucose 85 mg/dL (70-105); Magnesium 1.9 mg/dL (1.6-2.6); Potassium 4.3 mmol/L (3.5-5.1); Sodium 139 mmol/L (136-145)
[2020-07-14] MEDS: hydrALAZINE 10 MG TAB PO SCH ×3 (06:01→21:23)
[2020-07-14] MEDS: Heparin 5,000 UNITS/ML VIAL SC SCH ×2 (08:37→21:29)
[2020-07-14] MEDS: Carvedilol 6.25 MG TAB PO SCH ×2 (08:38→21:25)
[2020-07-14] MEDS: Aspirin Chewable 81 MG TAB PO SCH (08:42)
[2020-07-14] MEDS: Sodium Chloride 0.45% 1,000 ML IV SCH (12:49)
--- NOTE | 2020-07-14 13:19 | PRG ---
DATE OF SERVICE: 07/14/2020 HISTORY OF PRESENT ILLNESS: Mr. Nikita Redman had a good day. He did not have any shortness of breath. He was able to walk around the unit and down the mace and back. There is no palpitation, chest pain, or feeling so dizzy where he needed to sit down and there is no real weaknesses and he is quite pleased with that. He was able to sleep well last night without problems. REVIEW OF SYSTEMS: GENERAL: There are no fevers, chills, or productive cough. HEENT: There is no change in vision, hearing, or swallowing. PULMONARY: Please see HPI. CARDIAC: There is no chest pain, palpitations, or syncope. GI: There is no nausea, vomiting, or diarrhea. : He is able to urinate well on his own. MUSCULOSKELETAL: There is no joint or muscle pains. INTEGUMENT: There is no skin breakdown. NEUROLOGIC: There are no focal deficits or weaknesses. CURRENT MEDICATIONS: 1. Aspirin 81 mg daily. 2. Atorvastatin 80 mg at bedtime. 3. Carvedilol 12.5 mg q.12 hours. 4. Hydralazine 10 mg q.8 hours. 5. Nitroglycerin 0.4 mg sublingual as needed. PHYSICAL EXAMINATION: VITAL SIGNS: Heart rate 76, blood pressure 109/66. GENERAL: He is alert and conversational, relaxed, sitting up in bed. HEENT: Shows EOMI. Oropharynx is benign with moist mucosa. NECK: His JVP is bit more elevated today at 10 cm. PULMONARY: There is good air movement bilaterally. There are no rales bilaterally. CARDIAC: Regular rate and rhythm with normal S1 and S2. There is 2/6 holosystolic murmur at the apex with radiation to the left axilla. There is 2/6 holosystolic murmur at the left upper sternal border. He had mitral regurgitation and tricuspid regurgitation. ABDOMEN: Soft, nontender. Nontender. Positive bowel sounds. EXTREMITIES: His lower extremities are warm and well perfused. There is no edema. Positive dorsalis pedis pulses bilaterally. Telemetry was reviewed. Generally his heart rate has decreased significantly on average from the day before with increasing carvedilol despite titrating off ivabradin. He does have some slower rates with longest pause of 1.7 seconds. These occur in layer up hours while he is asleep. LABORATORY DATA: Sodium 139, potassium 4.3, chloride 102, BUN 18, creatinine 2. Magnesium at 1.9. However, during the discussion the patient mentioned that he had was drinking a fair amount of energy drinks, then I told him not to drink energy drinks. ASSESSMENT: 44-year-old gentleman is recovering well from nonischemic cardiomyopathy. He appears to be euvolemic and well compensated. He has dilated cardiomyopathy with left ventricular ejection fraction of 30%. He also has a right ventricle dilatation RV dysfunction. This is a global cardiomyopathy. He tolerated his carvedilol well. At this point we will keep carvedilol 12.5. We will need to add isosorbide dinitrate to complete his regimen. At this point due to the creatinine at 2.0 not related to HF, we will not be able to start his Entresto at this point in time. RECOMMENDATIONS: 1. Continue carvedilol at 12.5 mg p.o. q.12 hours. 2. Add on isosorbide dinitrate 5 mg p.o. q.12 hours. Due to his low blood pressures this is about all he can withstand. 3. We will request renal ultrasounds to help to identify the cause of chronic renal dysfunction. 4. Please fit the patient for LifeVest. I suspect the patient will be on a regimen of carvedilol, isosorbide dinitrate, hydralazine, aspirin, and atorvastatin as an outpatient. Currently he does not need loop diuretics. 5. After extensive conversations with the patient, the patient now understands he is to concentrate on aerobic exercise 5 times per week with a goal of 30 minutes per day for 5 times per week. 6. I have instructed the patient to not do heavy lifting and no weight lifting for 6 months. Lifting over 500 pounds might have contributed to cardiomyopathy. 7. I also asked patient not to use any more energy drinks because that also can induce tachycardia. It has been a pleasure seeing Mr. Redman. I will be rotating off service today. However, I will be happy to take phone calls as needed. The visitation time is 45 minutes, that include personally performing history and physical, reviewed telemetry, and extended explanation and counseling with patient. Job ID: [id number] [facility]
--- NOTE | 2020-07-14 19:20 | PDOC.HOSPP ---
- Subjective Encounter Date: 07/14/20 Encounter Time: 10:00 Subjective: Patient was seen and examined in bed. Had a generally good night. Denied any chest no shortness of breath. - Objective Vital Signs & Weight: Vital Signs (12 hours) Temp Pulse Pulse Pulse Resp BP BP 07/14/20 15:43 97.9 F 89 18 07/14/20 11:37 98 F 79 18 07/14/20 08:40 104 H 85 139/91 H 127/84 07/14/20 08:33 97.8 F 73 16 BP Pulse Ox 07/14/20 15:43 132/58 L 98 07/14/20 11:37 115/67 98 07/14/20 08:40 07/14/20 08:33 121/69 95 Weight Weight 204 lb 4.8 oz I&O: 07/13/20 07/14/20 07/15/20 06:59 06:59 06:59 Intake Total 1238 120 Output Total 700 1300 Balance 538 -1180 Result Diagrams: 07/14/20 03:10 07/14/20 03:10 Hospitalist ROS - Medication Medications: Active Medications Generic Name Dose Route Start Last Admin Trade Name Freq PRN Reason Stop Dose Admin Aspirin 81 mg 07/13/20 09:00 07/14/20 08:42 Aspirin Chewable 81 Mg Tab PO 81 mg DAILY LATA Administration Atorvastatin Calcium 80 mg 07/12/20 21:00 07/13/20 21:32 Atorvastatin Calcium 40 Mg Tab PO 80 mg HS LATA Administration Carvedilol 12.5 mg 07/13/20 21:00 07/14/20 08:38 Carvedilol 6.25 Mg Tab PO 12.5 mg Q12HR LATA Administration Heparin Sodium (Porcine) 5,000 units 07/12/20 21:00 07/14/20 08:37 Heparin 5,000 Units/Ml Vial SC 5,000 units BID LATA Administration Hydralazine HCl 10 mg 07/13/20 14:00 07/14/20 13:32 Hydralazine 10 Mg Tab PO 10 mg Q8HR LATA Administration - Exam General Appearance: awake alert Heart: RRR, no murmur, no gallops, normal peripheral pulses Respiratory: no wheezes, no rales, no ronchi, no tachypnea Gastrointestinal: soft, non-tender, non-distended, normal bowel sounds Extremities: no cyanosis, no clubbing, no edema Neurological: cranial nerve grossly intact, no focal deficits Psychiatric: normal affect, A&O x 3 Hosp A/P - Plan 44-year-old male patient with recent Covid diagnosis currently being managed for severely reduced EF with heart failure. Currently being followed by heart failure specialty team. Extensive explanation and direction for his condition has been given. Dr. Slade. Currently awaiting LifeVest prior to discharge Heart failure with reduced ejection fraction. Currently stable We will continue on carvedilol increased from 6.25 from 12.5 every 12. Also on hydralazine and isosorbide dinitrate. Heart failure team following. Also followed by a 15. CKD Stage III Evaluation Doppler ultrasound of kidneys and renal imaging. 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 Hypothyroidism Continue levothyroxine Arrhythmias Sinus pauses noted to the night. No ventricular arrhythmias so far Follow-up with electrophysiology CODE STATUSfull code VTE prophylaxisnone
[2020-07-14] MEDS: Isosorbide Dinitrate 5 MG TAB PO SCH (21:22)
[2020-07-14] MEDS: Atorvastatin Calcium 40 MG TAB PO SCH (21:29)
[2020-07-15 04:37] LABS: #Basophils 0.1 thou/uL (0.0-0.2); #Eosinphils 0.4 thou/uL (0.0-0.7); #Lymphocytes 1.9 thou/uL (1.20-3.40); #Monocytes 0.7 thou/uL (0.11-0.59); #Neutrophils 1.8 thou/uL (1.40-6.50); %Basophils 1.7 % (0.0-1.0); %Eosinophils 8.4 % (0.0-10.0); %Lymphocytes 38.9 % (21.0-51.0); %Monocytes 13.5 % (0.0-10.0); %Neutrophils 37.5 % (42.0-75.0); Hemoglobin 15.6 g/dL (14.0-18.0); Mean Corpuscular HGB CONC 32.9 g/dL (32.0-36.0); Mean Corpuscular Hemoglobin 30.1 pg (27.0-31.0); Mean Corpuscular Volume 91.5 fL (78.0-98.0); Mean Platelet Volume 8.3 fL (7.4-10.4); Platelet Count 183 thou/uL (130-400); RBC Distribution Width 13.3 % (11.5-14.5); Red Blood Cell (RBC) Count 5.19 mill/uL (4.70-6.10); White Blood Cell (WBC) Count 4.8 thou/uL (4.8-10.8)
[2020-07-15 05:00] LABS: Anion Gap 11 mmol/L (10-20); BUN (Urea Nitrogen) 20 mg/dL (8.9-20.6); Calc. Creatinine Clearance 60 mL/min (70-130); Carbon Dioxide 30 mmol/L (22-29); Chloride 102 mmol/L (98-107); Estimated GFR-MDRD 36; Potassium 4.3 mmol/L (3.5-5.1); Sodium 139 mmol/L (136-145)
[2020-07-15 05:01] LABS: Calcium 9.1 mg/dL (7.8-10.44); Glucose 94 mg/dL (70-105)
[2020-07-15] MEDS: hydrALAZINE 10 MG TAB PO SCH ×2 (07:25→13:50)
--- NOTE | 2020-07-15 08:43 | ULT ---
US Renal Bilateral STANDARD With grayscale, color-flow and spectral Doppler imaging: HISTORY: Renal insufficiency out of proportion with cardiac COMPARISON: None. FINDINGS: The right kidney measures 10 cm in length and the left kidney measures 10.4 cm in length. No focal ma ss or hydronephrosis is seen on either side. No shadowing calculi are noted. Cortical echogenicity and thickness is normal. The urinary bladder is unremarkable. The peak systolic velocity in the right renal artery measures 104 cm/s in the left renal artery measu res 79 cm/s with a renal artery to aortic ratios of 1.0 on the right and 0.8 on the left. The resistive indices measure 0.7 on the right and 0.6 on the left. IMPRESSION: Unremarkable exam.
[2020-07-15] MEDS: Aspirin Chewable 81 MG TAB PO SCH (08:44)
[2020-07-15] MEDS: Isosorbide Dinitrate 5 MG TAB PO SCH (08:45)
[2020-07-15] MEDS: Heparin 5,000 UNITS/ML VIAL SC SCH (08:45)
[2020-07-15] MEDS: Carvedilol 6.25 MG TAB PO SCH (08:45)
[2020-07-15 11:52] VITALS: BP 110/70; TEMP 98.6
--- NOTE | 2020-07-15 13:05 | PDOC.EP ---
- Subjective Date: 07/15/20 Time: 13:01 Interval History: feels well. no new cardiac events overnight - Review of Systems Constitutional: denies: chills, fever, malaise, sweats, weakness, other Respiratory: denies: cough, dry, hemoptysis, pleuritic pain, shortness of breath, SOB with excertion, sputum, wheezing, other Cardiology: denies: chest pain, edema, heart racing, light headedness, paroxysmal noc. dyspnea, orthopnea, palpitations, passing out, pleuritic pain, pressure, swelling, other Gastrointestinal: denies: abdominal pain, constipation, diarrhea, hematochezia, melena, nausea, vomitting, other Musculoskeletal: denies: unstable gait, falls, neck pain, shoulder pain, arm pain, hand pain, leg pain, foot pain, other - Objective Allergies/Adverse Reactions: Allergies Allergy/AdvReac Type Severity Reaction Status Date / Time No Known Allergies Allergy Unverified 07/11/20 15:35 Current Medications Acetaminophen/Codeine Phosphate (Acetaminophen/Codeine 30-300mg Tablet) 1 tab PO Q4H PRN PRN Reason: Mild Pain (1-3) Acetaminophen/Codeine Phosphate (Acetaminophen/Codeine 30-300mg Tablet) 2 tab PO Q4H PRN PRN Reason: Moderate Pain (4-6) Aspirin (Aspirin Chewable 81 Mg Tab) 81 mg PO DAILY [facility] Last Admin: 07/15/20 08:44 Dose: 81 mg Documented by: Atorvastatin Calcium (Atorvastatin Calcium 40 Mg Tab) 80 mg PO HS [facility] Last Admin: 07/14/20 21:29 Dose: 80 mg Documented by: Carvedilol (Carvedilol 6.25 Mg Tab) 12.5 mg PO Q12HR [facility] Last Admin: 07/15/20 08:45 Dose: 12.5 mg Documented by: Heparin Sodium (Porcine) (Heparin 5,000 Units/Ml Vial) 5,000 units SC BID [facility] Last Admin: 07/15/20 08:45 Dose: 5,000 units Documented by: Hydralazine HCl (Hydralazine 10 Mg Tab) 10 mg PO Q8HR [facility] Last Admin: 07/15/20 07:25 Dose: 10 mg Documented by: Sodium Chloride (Normal Saline 0.9%) 200 mls @ 0 mls/hr IV PRN PRN PRN Reason: SBP < 90 Isosorbide Dinitrate (Isosorbide Dinitrate 5 Mg Tab) 5 mg PO Q12HR [facility]ATA Last Admin: 07/15/20 08:45 Dose: 5 mg Documented by: Nitroglycerin (Nitroglycerin 0.4 Mg Tab (25 Tab Bottle)) 0.4 mg SL Q5MIN PRN PRN Reason: Chest Pain Vital Signs & Weight: Vital Signs Temp Pulse Resp BP Pulse Ox 07/15/20 11:45 98.6 F 94 12 110/70 99 07/15/20 08:38 98.5 F 85 12 119/67 97 07/15/20 07:25 69 07/15/20 03:22 97.6 F 69 12 105/55 L 95 Weight 199 lb 3.2 oz I/O: I/O 07/14/20 07/15/20 07/16/20 06:59 06:59 06:59 Intake Total 120 360 Output Total 1300 Balance -1180 360 - Physical Exam General: alert & oriented x3, appears well, no apparent distress, speech clear, affect appropriate HEENT: mucus membranes moist, normocephaly Neck: supple neck, midline trachea, no JVD/HJR, no masses, no bruit, no lymphadenopathy, no thromegaly Cardiology: regular rate and rhythm, no murmur, regular rate, regular rhythm, PMI nondisplaced Lungs: clear to auscultation, normal breath sounds, normal exam, no wheeze, rales, rhonchi, no wheezes, no rales, no rhonchi Neurology: cranial nerve 2-12 intact, grossly intact, motor function intact, sensory function intact, negative rhomberg, coordination normal, no lateralizing findings Abdomen: unremarkable, active bowel sounds, soft, non-tender, no masses, no pulsations/bruits, no hepatosplenomegaly, HJR negative - Labs Result Diagrams: 07/15/20 04:02 07/15/20 04:02 - EKG Interpretation EKG Method: Telemetry EKG shows: Sinus rhythm - Assessment/Plan Assessment/Plan: 1. Newly found systolic congestive heart failure with nonischemic cardiomyopathy. a. Severe reduced LVEF on 2D echo from 07/12/2020 at 30% and moderate RV dilation. b. Left heart catheterization today shows normal coronary arteries. 2. Recurrent syncopal and near syncopal spells. 3. Renal insufficiency. 4. Recent COVID-19 pneumonia infection. Rhythm stable on tele. No repeat syncope. No NSVT/VT. medical management and lifevest. Could consider EPS if VT is seen but at this time his syncopal events are not highly suspicious for arrhythmia origin. If repeat echo </= 35% after 3 months of optimized GDMT.
--- NOTE | 2020-07-15 17:18 | PDOC.DS.DS ---
Provider - Provider Date of Admission: 07/11/20 16:13 Date of Discharge: 07/15/20 Admitting Provider: Jaison Cardona MD Primary Care Physician: Jolly York MD Course - Hospital Course Hospital Course: This is a 44-year-old male patient with a history of stage III CKD, recent Covid who was admitted on account of near syncope. Echocardiogram on admission showed severely reduced EF of unclear etiology. He had cardiac catheterization which showed no significant coronary artery disease. Heart failure team was consulted to help with management. At the time of discharge he was generally stable. Resuscitation Status: 07/11/20 17:16 Resuscitation Status Routine Resuscitation Status: FULL: Full Resuscitation - Labs Lab Results: 07/15/20 04:02 07/15/20 04:02 Abnormal Lab Results - Last 48 hrs 07/14/20 03:10: Creatinine 2.00 H 07/14/20 03:10: Neutrophils % 37.4 L, Monocytes % 14.5 H, Basophils % 1.3 H, Monocytes # 0.8 H 07/15/20 04:02: Carbon Dioxide 30 H, Creatinine 2.03 H 07/15/20 04:02: Neutrophils % 37.5 L, Monocytes % 13.5 H, Basophils % 1.7 H, Monocytes # 0.7 H - Physical Exam Vitals: Vital Signs (12 hours) Temp Pulse Resp BP Pulse Ox 07/15/20 13:50 101 H 07/15/20 11:45 98.6 F 94 12 110/70 99 07/15/20 08:38 98.5 F 85 12 119/67 97 07/15/20 07:25 69 Weight Weight 199 lb 3.2 oz Physical Exam: The patient was seen and examined on the day of discharge. General: In bed, no acute distress. Respiratory system: Air entry adequate bilaterally. No rhonchi. CVS: S1-S2 present. No murmurs gallops or rubs. Abdomen: Benign Extremities: No edema Problem - Discharge Plan Assessment: Severe systolic heart failure Unclear etiology Possibly due to Covid Continue on heart failure medications LifeVest given prior to discharge Follow-up with EP/cardiology. Chronic kidney disease stage III. This was stable He follow-up with nephrology Patient Covid diagnosis Asymptomatic Out of infectious [place] need for isolation Plan - Discharge Medications Prescriptions: Nitroglycerin [Nitrostat] 0.4 mg SL Q5MIN PRN #30 tab PRN Reason: Chest Pain hydrALAZINE [Apresoline] 10 mg PO Q8HR #90 tab Carvedilol [Coreg] 12.5 mg PO Q12HR #60 tab Isosorbide Dinitrate [Isordil] 5 mg PO Q12HR #60 tab Aspirin Chewable [Aspirin Chewable Tablet] 81 mg PO DAILY #30 tab Atorvastatin Calcium [Lipitor] 80 mg PO HS #60 tab Home Medications: Medication Instructions Recorded Confirmed Type Testosterone Cypionate 200 mg IM Q7DAYS 07/11/20 07/11/20 History Thyroid [[place] Thyroid] 90 mg PO DAILY 07/11/20 07/11/20 History Aspirin Chewable [Aspirin Chewable 81 mg PO DAILY #30 tab 07/13/20 Rx Tablet] Atorvastatin Calcium [Lipitor] 80 mg PO HS #60 tab 07/13/20 Rx Carvedilol [Coreg] 12.5 mg PO Q12HR #60 tab 07/13/20 Rx Nitroglycerin [Nitrostat] 0.4 mg SL Q5MIN PRN #30 tab 07/13/20 Rx hydrALAZINE [Apresoline] 10 mg PO Q8HR #90 tab 07/13/20 Rx Isosorbide Dinitrate [Isordil] 5 mg PO Q12HR #60 tab 07/15/20 Rx Allergies: No Known Allergies Allergy (Unverified 07/11/20 15:35) - Discharge Instructions Nourishment:: Heart Healthy Diet, Low Sodium Diet Additional Equipment / Supplies Instructions:: Lifevest - Follow up Plan Referrals: [facility]Outside] - 07/30/20 1:15 pm (You are scheduled for an evaluation with [facility]. Please bring a list of your current medications and your insurance cards to this appointment. If you have any questions or need to reschedule please call us at [phone]. We look forward to working with you soon.) Jolly York MD [Primary Care Provider] - 07/22/20 9:30 am Niru Lange MD [Active] - 2-3 Weeks (CALL AND SCHEDULE FOLLOW UP APPT TO SEE DR KELLY IN 2-3 WEEKS) Tyler Bains MD [Active] - (call and schedule follow up appt with Dr Bains as instructed) Bryan Slade MD [Active] - 3-4 Weeks (CALL AND SCHEDULE FOLLOW UP APPT TO SEE DR SLADE IN 3-4 WEEKS) Geo Shepard MD [Melting Supervisor] - 08/30/20 (KEEP YOUR APPT TO SEE DR SHEPARD ON 08/30/2020) Disposition: HOME Quality - Care Measures CORE MEASURES:: HF - Stroke/TIA Did you prescribe antithrombotic therapy?: Yes Did you prescribe anticoagulant for A Fib/Flutter?: No Specify reason for no DC anticoagulant: Treatment not indicated Did you prescribe a statin medication?: Yes
--- NOTE | 2020-07-15 17:36 | PRG ---
DATE OF SERVICE: 07/15/2020 SUBJECTIVE: The patient is seen and examined. No new complaint noted with the following vital signs. OBJECTIVE: VITAL SIGNS: Afebrile, temperature 98.6, pulse 94, respiratory rate of 12, O2 saturation are 99% with blood pressure 110/70. HEENT: Unremarkable. CARDIOVASCULAR: First and second heart sounds were heard. RESPIRATORY: Clear to auscultation. DIGESTIVE: Revealed a benign abdomen. EXTREMITIES: No peripheral edema. SKIN: No new gross rash. LYMPHATICS: No peripheral lymphadenopathy. LABORATORY INVESTIGATIONS: Significant for creatinine of 2.03, which is more or less of baseline. IMPRESSION: 1. Chronic kidney disease stage 3. 2. Cardiomyopathy, viral induced cardiomyopathy. PLAN: Outpatient Nephrology followup, status post discharge. Further management to be dependent on the clinical course. Job ID: [id number]
--- NOTE | 2020-07-16 09:54 | ULT ---
US Renal Bilateral STANDARD With grayscale, color-flow and spectral Doppler imaging: HISTORY: Renal insufficiency out of proportion with cardiac COMPARISON: None. FINDINGS: The right kidney measures 10 cm in length and the left kidney measures 10.4 cm in length. No focal ma ss or hydronephrosis is seen on either side. No shadowing calculi are noted. Cortical echogenicity and thickness is normal. The urinary bladder is unremarkable. The peak systolic velocity in the right renal artery measures 104 cm/s in the left renal artery measu res 79 cm/s with a renal artery to aortic ratios of 1.0 on the right and 0.8 on the left. The resistive indices measure 0.7 on the right and 0.6 on the left. IMPRESSION: Unremarkable exam. Transcribed Date/Time: 07/16/2020 9:53 AM
--- NOTE | 2020-07-17 06:00 | PQF ---
CLINICAL DOCUMENTATION CLARIFICATION FORM: Dear : Delfino Roberts Date / Time: 07/17/2020 0559 Please exercise your independent, professional judgment in responding to the clarification form. Clinical indicators are provided on the bottom of this form for your review Based on your clinical judgment, can you please specify the acuity of patients CHF? Please check appropriate box(es): HEART FAILURE: A. ACUITY [ x] Acute [ ] Acute on Chronic [ ] Chronic [ ] Other diagnosis, please specify [ ] Unable to determine Physician Signature: SELAM Date/Time:07/19/20 For continuity of documentation, please document condition throughout progress notes and discharge summary. Thank You. To be completed by CDI/Coding staff for physician review: Present Clinical Indicators - Signs / Symptoms / Labs Results and Location in Medical Record [X] BNP less than 10 Laboratory 07/11 [X] Echocardiogram LVEF 30% Procedure Dr Slade 07/12 [X] He appears to be euvolemic and well compensated PN p2 07/14 Dr Slade [X] Severe systolic heart failure possibly due to Covid DS 07/15 Dr Roberts [X] CT of chest: no pleural effusion CT of chest 07/11 [X] Lower extremities without edema PN 07/12 Present Risk Factors Results and Location in Medical Record [X] Cardiomyopathy H&P p4 07/11 Dr Cardona [X] CKD 3 H&P p4 07/11 Dr Cardona [X] HTN Consult Dr Lomas 07/11 Present Treatments Results and Location in Medical Record [X] Aspirin 81 mg oral OCT 31 [X] Coreg 6.25 mg oral OCT 31 [X] Nitroglycerin 0.4 mg sl OCT 31 [X] IVF NS 1L OCT 31 [X] Cardiac Catheterization Procedure Dr Bains 07/12 [X] Cardio consult Consult Dr Lomas 07/11 CDS/Herb Digger Signature: Jeannette Schultz Phone #: [phone] Date/Time: 07/17/202098 This is a permanent part of the Medical Record [facility]
== END 2020-07-15 13:00 | disposition home or self-care (01) | DRG 177 ==
LOC: ERS 13:40 → OBSVTOIN 16:13 → ERHOLD 16:13 → 2NO 19:25
PROVIDERS: ADMIT Internal Medicine; ATTEND Internal Medicine
PROC: 4A023N7 Measurement of Cardiac Sampling and Pressure, Left Heart, Percutaneous Approach (ICD-10-PCS; principal; 2020-07-12)
PROC: B2111ZZ Fluoroscopy of Multiple Coronary Arteries using Low Osmolar Contrast (ICD-10-PCS; 2020-07-12)
PROC: B2151ZZ Fluoroscopy of Left Heart using Low Osmolar Contrast (ICD-10-PCS; 2020-07-12)
DX: U07.1 COVID-19 (principal); I50.21 Acute systolic (congestive) heart failure; I42.0 Dilated cardiomyopathy; B33.24 Viral cardiomyopathy; E29.1 Testicular hypofunction; G43.909 Migraine, unspecified, not intractable, without status migrainosus; E03.9 Hypothyroidism, unspecified; R79.89 Other specified abnormal findings of blood chemistry; N18.31 Chronic kidney disease, stage 3a; I12.9 Hypertensive chronic kidney disease with stage 1 through stage 4 chronic kidney disease, or unspecified chronic kidney disease; R00.1 Bradycardia, unspecified; Z79.899 Other long term (current) drug therapy; Z87.01 Personal history of pneumonia (recurrent); Z85.828 Personal history of other malignant neoplasm of skin; Z79.890 Hormone replacement therapy
CPT/HCPCS: 36415; 71046; 71250; 76770; 80048; 80053; 80061; 82728; 83036; 83540; 83550; 83735; 83835; 83880; 84443; 84484; 84585; 85025; 86769; 93005; 93306; 93454; 93798; 93975; 99152; G0378; J0461; J1644; J2250; J2405; J3010; J7608; Q9967

== ENCOUNTER 2020-12-26 17:02 | Outpatient (CLI) | payer BC | END 2020-12-26 17:03 | disposition home or self-care (01) | LOC: SCSRAD 17:02 | PROVIDERS: ATTEND Family Medicine | DX: M24.812 Other specific joint derangements of left shoulder, not elsewhere classified (principal) ==

== ENCOUNTER 2022-10-02 02:45 | Emergency (ER) | payer BC ==
[2022-10-02] MEDS ORDERED: Ondansetron ODT 4 MG TAB ONE (04:03)
== END 2022-10-02 04:37 | disposition home or self-care (01) ==
LOC: ERS 02:45
DX: S46.211A Strain of muscle, fascia and tendon of other parts of biceps, right arm, initial encounter (principal); I50.9 Heart failure, unspecified; N18.9 Chronic kidney disease, unspecified; E78.5 Hyperlipidemia, unspecified; Z79.899 Other long term (current) drug therapy; Z79.82 Long term (current) use of aspirin; X50.9XXA Other and unspecified overexertion or strenuous movements or postures, initial encounter
CPT/HCPCS: Q0162